=== PATIENT | male | born 1975 | race African-American/Black ===

== ENCOUNTER 2018-05-12 15:22 | Emergency (ER) | payer OTHER ==
[2018-05-12] MEDS: DIPHENHYDRAMINE 50 MG INJ IV ×2 (19:23→21:10)
[2018-05-12] MEDS: ONDANSETRON 4 MG INJ IV ×2 (19:23→20:21)
[2018-05-12] MEDS: HYDROmorphONE 1 MG/ML SYG IV ×2 (19:23→20:25)
[2018-05-12 19:34] LABS: ADD MAN DIFF? NO
[2018-05-12 19:36] LABS: WHITE BLOOD COUNT 10.2 10^3/ul (4.8-10.8)
[2018-05-12 19:36] LABS: BASOPHIL # 0.1 10^3/ul (0.0-0.1); BASOPHILS % 0.6 % (0.0-2.0); EOSINOPHILS # 0.5 10^3/ul (0.0-0.5); EOSINOPHILS % 4.4 % (0.0-7.0); HEMATOCRIT 20.9 % (42.0-52.0); HEMOGLOBIN 7.5 g/dl (14.0-18.0); LYMPHOCYTES # 2.3 10^3/ul (0.8-2.9); LYMPHOCYTES % 22.4 % (15.0-51.0); MEAN CORPUSCULAR HEMOGLOBIN 33.8 pg (29.0-33.0); MEAN CORPUSCULAR HGB CONC 35.9 g/dl (32.0-37.0); MEAN CORPUSCULAR VOLUME 94.1 fl (82.0-101.0); MEAN PLATELET VOLUME 10.3 fl (7.4-10.4); MONOCYTE # 0.8 10^3/ul (0.3-0.9); NEUTROPHIL # 6.5 10^3/ul (1.6-7.5); NEUTROPHILS % 63.5 % (39.0-77.0); NUCLEATED RED BLOOD CELLS # 0.1 10^3/ul (0.0-0.0); PLATELET COUNT 239 10^3/UL (140-415); RED BLOOD COUNT 2.22 10^6/ul (4.70-6.10); RED CELL DISTRIBUTION WIDTH 15.7 % (11.5-14.5); RETICULOCYTE COUNT # 0.174 X10^6 (0.020-0.110); RETICULOCYTE COUNT % 7.9 % (0.5-1.5); RETICULOCYTE RBC 2.22
[2018-05-12 19:52] LABS: ALANINE AMINOTRANSFERASE 41 IU/L (13-69); ALBUMIN 3.7 g/dl (3.3-4.9); ALBUMIN/GLOBULIN RATIO 1.37; ALKALINE PHOSPHATASE 294 IU/L (42-121); ANION GAP 6 (5-13); ASPARTATE AMINO TRANSFERASE 79 IU/L (15-46); BILIRUBIN,INDIRECT 1.2 mg/dl (0-1.1); BILIRUBIN,TOTAL 1.2 mg/dl (0.2-1.3); BLOOD UREA NITROGEN 11 mg/dl (7-20); CARBON DIOXIDE 24 mmol/L (21-31); CHLORIDE 104 mmol/L (97-110); CREATININE 0.79 mg/dl (0.61-1.24); Estimated GFR > 60 mL/min (>60); GLUCOSE 87 mg/dl (70-220); POTASSIUM 4.2 mmol/L (3.5-5.1); SODIUM 134 mmol/L (135-144); TOTAL PROTEIN 6.4 g/dl (6.1-8.1)
[2018-05-12 19:56] LABS: INR 0.98; PROTIME 13.1 Sec (11.9-14.9)
[2018-05-12 19:57] LABS: PARTIAL THROMBOPLASTIN TIME 40.6 Sec (23.0-35.0)
== END 2018-05-12 21:27 | disposition home or self-care (01) ==
LOC: E/R 15:22
DX: D57.00 Hb-SS disease with crisis, unspecified (principal); R40.2142 Coma scale, eyes open, spontaneous, at arrival to emergency department; R40.2362 Coma scale, best motor response, obeys commands, at arrival to emergency department; R40.2252 Coma scale, best verbal response, oriented, at arrival to emergency department
CPT/HCPCS: 80053; 85025; 85045; 85610; 85730; 96374; 96375; 96376; 99284-25